=== PATIENT | male | born 2000 | race Caucasian/White ===

== ENCOUNTER 2020-07-02 11:43 | Emergency (ER) | payer MEDICAID, SELFPAY ==
[2020-07-02 11:45] VITALS: BP 129/79; PULSE 96; RESP 16; TEMP 36.5; O2SAT 97; BMI 24.9
--- NOTE | 2020-07-02 11:55 | ED_ITS ---
HPI - Skin/Abscess/Foreign Bdy General: Chief complaint: Skin/Abscess/Foreign Body Stated complaint: PAIN IN BOTH FEET Time Seen by Provider: 07/02/20 11:55 Source: patient Mode of arrival: ambulatory Limitations: no limitations History of Present Illness: HPI narrative: systemic rash, right foot painful and burning MD complaint: rash and lesion Onset (ago): day(s) (2) Tetanus up to date: yes Location: generalized, back, LLE, RLE, L foot and R foot Severity: moderate Severity scale (1-10): 6 Quality: burning and pruritic Pain Consistency: constant Relieving factors: none Review of Systems General: Reports: 10 or more systems reviewed and unremarkable except in HPI and below Skin/Breast: Reports: rash, pruritus, erythema and sores Physical Exam Const: COMMON NORMALS: no acute distress, patient oriented x3, no limitations and alert GENERAL APPEARANCE: cooperative and comfortable ORIENTATION/CONSCIOUSNESS: Yes awake, Yes oriented to person, Yes oriented to place and Yes oriented to time HENMT: COMMON NORMALS: normocephalic, atraumatic, external ears normal, EAC's normal, TM's normal bilaterally and Normal external nose present HEAD & SCALP: normal to inspection, normocephalic and atraumatic FACE & SINUS: normal facial exam, sinuses nontender and face symmetric NOSE: Normal external nose present, Normal nares present and No nasal discharge present EXTERNAL EAR: Yes external ears normal EXTERNAL AUDITORY CANAL: EAC's normal TYMPANIC MEMBRANE: TM's normal bilaterally MOUTH: Normal oral and palatal mucosa present, lip normal and tongue normal THROAT: posterior oropharynx normal, tonsils normal and uvula midline Eye: COMMON NORMALS: Equal, round and reactive pupils present, EOMs intact bilaterally and conjunctivae normal GENERAL EYE: appearance normal, both eyes and all related structures and normal light reflex EYELID: eyelids normal CONJUNCTIVA: Yes conjunctivae normal PUPIL: Yes Equal, round and reactive pupils present EOM: Yes EOM abnormal DIRECT OPHTHALMOSCOPY: Yes normal light reflex Neck/C-Spine: COMMON NORMALS: full ROM, no lymphadenopathy, supple, no meningeal signs, no JVD and Thyroid normal GENERAL: Yes normal visual inspection THYROID: Thyroid normal CERVICAL SPINE: Yes cervical ROM normal and Yes normal cervical lordosis Lymph: LYMPHATIC: no lymphadenopathy noted Chest: COMMONS NORMALS: normal inspection of the chest and normal palpation of entire chest wall Resp: COMMON NORMALS: normal respiratory effort, No retractions and clear to auscultation bilaterally AUSCULTATION: clear to auscultation bilaterally Cardio: COMMON NORMALS: no JVD, regular rate, regular rhythm, S1 normal heart sound present, S2 normal heart sound present, No gallops present (Cardio), No clicks present (Cardio), No murmurs present (Cardio), No rub (Cardio) and Peripheral pulses 2+ throughout RATE: regular rate RHYTHM: regular rhythm HEART SOUNDS: S1 normal heart sound present and S2 normal heart sound present PERIPHERAL PULSES: Peripheral pulses 2+ throughout GI: COMMON NORMALS: Normal to inspection, nondistended, normoactive bowel sounds present, Soft to palpation, non-tender and no masses PALPATION: Yes Soft to palpation and No Tenderness to palpation present (GI) : COMMON NORMALS: Yes no CVA tenderness BLADDER/KIDNEY EXAM: Yes no CVA tenderness Back/Pelvis: COMMON NORMALS: no CVA tenderness, thoracic and lumbar spine normal to inspection, no thoracic nor lumbar tenderness and thoraco-lumbar ROM normal Extremity: COMMON NORMALS: normal to inspection, full ROM, capillary refill normal, no joint enlargement, no clubbing, cyanosis or edema, no calf tenderness and no pedal edema GENERAL: Yes normal exam except as noted Neuro: COMMON NORMALS: patient oriented x3, moves all extremities, no focal motor deficits, no sensory deficits noted and gait normal SENSORIUM/ORIENTATION: Yes alert, Yes oriented to person, Yes oriented to place and Yes oriented to time MENINGEAL SIGNS: Yes no meningeal signs Psych: COMMON NORMALS: mental status grossly normal, Normal thought process present, cooperative, normal affect, speech normal and activity/motor behavior normal SPEECH: Yes normal speech THOUGHT PROCESS: Normal thought process present Skin: COMMON NORMALS: no wounds and turgor normal GENERAL SKIN EXAM: turgor normal, erythema and Excoriation LESIONS: lesion noted (vesicular lesions over BLE and back ) RASHES: rashes noted Course ED course: Pt presents to ER with vesicular lesions that are crusting and weeping. His right foot is most notably red and painful with some tissue loss. He denies any recent illnesses, IV drug use, or contact with poison kylah or possible allergens. 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 Labs are pending. HIV testing was discussed with pt before ordering. Reevaluation(s): Reevaluation #1: Labs are not conclusive of any infection but I am still going to treat pt with oral antibx for secondary infection of vesicular lesions. The presention could still be a contact dermatitis but because pt is not sure of contaminants we will proceed with follow up with derm. Topical steroids to help with discomfort. Time: 13:46 Vital Signs: Vital signs: Vital Signs Temperature 97.7 F 07/02/20 11:45 Pulse Rate 81 07/02/20 13:02 Respiratory Rate 16 07/02/20 13:02 Blood Pressure 120/74 07/02/20 13:02 Pulse Oximetry 100 07/02/20 13:02 MDM - Skin/Abscess/Foreign Bdy Lab Data: Labs: Lab Results 07/02/20 07/02/20 07/02/20 Range/Units 12:28 12:28 12:28 WBC 11.6 H (4.0-10.0) 10^3/ uL RBC 5.14 (4.1-5.3) 10^6/u L Hgb 15.3 (11.7-16.6) g/dL Hct 45.9 (42.0-52.0) % MCV 89.3 (80-94) fL MCH 29.8 (28.0-34.0) pg MCHC 33.3 (30.0-36.0) g/dL RDW 12.5 (12.1-15.1) % Plt Count 294 (130-400) 10^3/c mm MPV 9.0 (7.4-10.4) fL Neut % (Auto) 64.3 % Lymph % (Auto) 18.4 % [place] % (Auto) 13.6 % Eos % (Auto) 2.9 % Baso % (Auto) 0.5 % Neut # (Auto) 7.44 (1.8-7.7) 10^3/u L Lymph # (Auto) 2.1 (0.8-4.8) 10^3/u L [place] # (Auto) 1.6 H (0.2-0.9) 10^3/u L Eos # (Auto) 0.3 (0.0-0.8) 10^3/u L Baso # (Auto) 0.1 (0.0-0.1) 10^3/u L Nucleated RBC % (a uto) 0 % Nucleated RBCs # 0.0 /100WBC Monoscreen Negative (Negative) HIV 1&2 Ab & HIV 1 Ag Non-reactive (Non-Reactiv) HIV 1&2 Antibody Non-reactive (Non-Reactiv) Group A Strep Rapi d (Negative) 07/02/20 Range/Units 12:46 WBC (4.0-10.0) 10^3/ uL RBC (4.1-5.3) 10^6/u L Hgb (11.7-16.6) g/dL Hct (42.0-52.0) % MCV (80-94) fL MCH (28.0-34.0) pg MCHC (30.0-36.0) g/dL RDW (12.1-15.1) % Plt Count (130-400) 10^3/c mm MPV (7.4-10.4) fL Neut % (Auto) % Lymph % (Auto) % [place] % (Auto) % Eos % (Auto) % Baso % (Auto) % Neut # (Auto) (1.8-7.7) 10^3/u L Lymph # (Auto) (0.8-4.8) 10^3/u L [place] # (Auto) (0.2-0.9) 10^3/u L Eos # (Auto) (0.0-0.8) 10^3/u L Baso # (Auto) (0.0-0.1) 10^3/u L Nucleated RBC % (a uto) % Nucleated RBCs # /100WBC Monoscreen (Negative) HIV 1&2 Ab & HIV 1 Ag (Non-Reactiv) HIV 1&2 Antibody (Non-Reactiv) Group A Strep Rapi d Negative (Negative) Discharge Plan Discharge Patient Disposition: Home Clinical Impression: Viral exanthem Condition: Stable Prescriptions: New Augmentin 875-125 mg tablet 1 tab PO Q12H Qty: 20 RF: 0 triamcinolone acetonide 0.1 % lotion 1 applic topical BID Qty: 120 RF: 1 Discharge Orders: Discharge ED (Routine); Ordered 07/02/20 Ordered By: Alina Cherry Referrals: Alida Robledo DO [Physician] - Discharge Diet: Usual diet Discharge Activity: Increase activity as tolerated Patient Instructions: Opioid Safety Coding Level of Care Code ED Radiologist Diagnostic for [facility]ig Fwd Exam Comprehensive
[2020-07-02] MEDS: dexamethasone 10 mg/mL INJ IM (12:26)
[2020-07-02 12:37] LABS: Basophils # 0.1 10^3/uL (0.0-0.1); Basophils % 0.5 %; Eosinophils # 0.3 10^3/uL (0.0-0.8); Eosinophils % 2.9 %; Hematocrit 45.9 % (42.0-52.0); Hemoglobin 15.3 g/dL (11.7-16.6); Lymphocytes # 2.1 10^3/uL (0.8-4.8); Lymphocytes % 18.4 %; Mean Corpuscular HGB Conc 33.3 g/dL (30.0-36.0); Mean Corpuscular Hemoglobin 29.8 pg (28.0-34.0); Mean Corpuscular Volume 89.3 fL (80-94); Monocytes # 1.6 10^3/uL (0.2-0.9); Monocytes % 13.6 %; Neutrophils # 7.44 10^3/uL (1.8-7.7); Neutrophils % 64.3 %; Nucleated Red Blood Cells % 0 %; Platelet Count 294 10^3/cmm (130-400); Red Blood Count 5.14 10^6/uL (4.1-5.3); Red Cell Distribution Width 12.5 % (12.1-15.1); White Blood Count 11.6 10^3/uL (4.0-10.0)
[2020-07-02 12:47] LABS: Monoscreen Negative (Negative)
[2020-07-02] MEDS: silver sulfadiazine cream 1% 50 gm 1 APPLIC TOPICAL (12:51)
--- NOTE | 2020-07-02 13:01 | PC.NURSE ---
cleaned bilateral feet with NS, applied silvadene cream, ABD pad, wrapped with kerlix. patient tolerated well
[2020-07-02 13:02] VITALS: BP 120/74; PULSE 81; RESP 16; O2SAT 100
[2020-07-02 13:16] LABS: HIV 1 & 2 Antibody Non-Reactive (Non-Reactiv); HIV 1 & 2 Antigen Non-Reactive (Non-Reactiv)
[2020-07-02 13:20] LABS: Rapid Strep A Test Negative (Negative)
[2020-07-02] MEDS: amoxicillin-clav 875-125 mg Tablet 1 TAB PO (13:22)
[2020-07-02 14:11] VITALS: BP 132/90; PULSE 83; RESP 16; O2SAT 100
--- NOTE | 2020-07-07 13:43 | DCPLANNER ---
Addendum entered by Yana Colón 07/12/20 11:17: environmental compliance manager called the dermatology clinic, spoke with Doris, a follow up appointment was scheduled for Monday, July 13, 2020 at 9:[address] Robledo. Clinic will call patient with appointment information. Original Note: environmental compliance manager had message to schedule a follow up appointment for patient with dermatology. environmental compliance manager called the dermatology clinic, unable to speak with anyone at the clinic at this time, a voicemail was left at the clinic to return employment evaluator/case manager phone call for referral.
--- NOTE | 2020-08-12 15:22 | DCPLANNER ---
Patient had an appointment scheduled for 07.13.20 with dermatology - patient did not attend appointment.
== END 2020-07-02 14:14 | disposition home or self-care (01) ==
PROVIDERS: Emergency Provider Nurse Practitioner Family
DX: B09 Unspecified viral infection characterized by skin and mucous membrane lesions (principal)
CPT/HCPCS: 85025; 86308; 87081; 87806; 87880; 96372; 99283; J1100

== ENCOUNTER 2020-07-05 14:28 | Emergency (ER) | payer MEDICAID, SELFPAY ==
[2020-07-05 14:53] VITALS: BP 131/80; PULSE 90; RESP 16; TEMP 36.7; O2SAT 99; BMI 24.9
--- NOTE | 2020-07-05 18:08 | ED_ITS ---
HPI - Extremity Problem General: Chief complaint: Extremity Problem,Nontraumatic Stated complaint: Infection on R. Foot Time Seen by Provider: 07/05/20 17:36 Source: patient Mode of arrival: ambulatory Limitations: no limitations History of Present Illness: MD Complaint: extremity pain and extremity swelling Location: left, right, lower extremity and other (foot) Quality: burning and other (itching) Radiation: none Relieving factors: nothing Exacerbating factors: nothing Associated symptoms: Reports no associated symptoms and rash (itching scaling rash to bilateral feet); Deny chest pain or fever(s) Review of Systems Const: Denies: fever(s), chills, body aches, change in appetite, change in weight, fatigue, malaise or diaphoresis Eyes: Denies: change in vision, blurry vision, blind spots, photophobia, eye discomfort, eye discharge, eye redness, floaters or seeing flashes ENMT: Denies: throat pain, uvular edema, enlarged tonsils, odynophagia, hoarseness, mouth pain, swelling of lips/tongue, oral sores, bleeding gums, dental pain, dry mouth, ear or mastoid pain, ear discharge, change in hearing, tinnitus, disequilibrium, nasal discharge, nasal congestion, post nasal drip or sinus pain Card: Denies: chest pain, palpitations, irregular heart rhythm, edema, swelling of feet/ankles, lightheadedness, syncope, pre-syncope, dyspnea on exertion, orthopnea, leg pain with exertion or acrocyanosis Resp: Denies: dyspnea, productive cough, non-productive cough, wheezing, stridor, pain on inspiration, change in phlegm color, hemoptysis or chest congestion GI: Denies: abdominal pain, nausea, vomiting, hematemesis, dysphagia, diarrhea, constipation, GI cramping, change in bowel habits or rectal pain : Denies: flank pain, dysuria, urinary frequency, urinary urgency, urinary hesitancy or hematuria Musc: Denies: neck pain, back pain, extremity pain, extremity swelling, joint pain, joint swelling, joint redness, joint warmth or deformity Skin/Breast: Reports: rash (itching scaling rash to bilateral feet); Denies: pruritus, erythema, sores, new lesions, changes in skin color or dry skin Neuro: Denies: headache(s), numbness in extremities, weakness in extremities, sensory changes, lack of coordination, difficulty walking, frequent falls, dizziness, vertigo, confusion, behavioral changes, Slurred speech present, difficulty communicating thoughts or seizure-like activity Psych: Denies: anxiety, depression, suicidal ideation or homicidal ideation Endo: Denies: polyuria, polydipsia, tired all the time, cold intolerance, excessive sweating, flushing, hot flashes or heat intolerance Jame/Lymph: Denies: easy bruising, easy bleeding, petechiae, purpura, enlarged lymph nodes or tender lymph nodes All/Imm: Denies: urticaria, throat swelling, tongue swelling, facial swelling, acute wheezing or itchy eyes Physical Exam Const: COMMON NORMALS: no acute distress, average body habitus, patient oriented x3, no limitations, healthy appearing, alert and well nourished HENMT: COMMON NORMALS: normocephalic and atraumatic HEAD & SCALP: normocephalic and atraumatic THROAT: no uvular edema Eye: COMMON NORMALS: Equal, round and reactive pupils present PUPIL: Yes Equal, round and reactive pupils present Lymph: LYMPHATIC: no lymphadenopathy noted Resp: COMMON NORMALS: normal respiratory effort Cardio: COMMON NORMALS: regular rate and regular rhythm RATE: regular rate RHYTHM: regular rhythm Extremity: COMMON NORMALS: full ROM, capillary refill normal, no joint enlargement, no clubbing, cyanosis or edema, no calf tenderness and no pedal edema Neuro: COMMON NORMALS: patient oriented x3, CN's II-XII intact bilaterally, moves all extremities, no focal motor deficits and no sensory deficits noted SENSORIUM/ORIENTATION: Yes alert Psych: COMMON NORMALS: mental status grossly normal, Normal thought process present, cooperative, normal affect, speech normal, activity/motor behavior normal, denies hallucinations and denies suicidal ideation SPEECH: Yes normal speech THOUGHT PROCESS: Normal thought process present Skin: NARRATIVE SKIN EXAM: scaling erythema rash noted to bilateral feet c/w tinea corpus there is also what appears to be start of celluitis to left foot. Course Vital Signs: Vital signs: Vital Signs Temperature 98.0 F 07/05/20 14:53 Pulse Rate 90 07/05/20 14:53 Respiratory Rate 16 07/05/20 14:53 Blood Pressure 131/80 07/05/20 14:53 Pulse Oximetry 99 07/05/20 14:53 MDM - Extremity (Nontraumatic) MDM Narrative: Medical decision making narrative: Pt is well appearing non toxic and in no acute distress. scaling erythema rash noted to bilateral feet c/w tinea corpus there is also what appears to be start of celluitis to left foot. I will start patient on an antifungal ointment as well as an oral antibiotic. I reviewd home care and return precautions with patient. Pt is NVI distall and afebrile. Discharge Plan Discharge Patient Disposition: Home Clinical Impression: Tinea corporis Cellulitis Qualifiers: Site of cellulitis: extremity Site of cellulitis of extremity: lower extremity Laterality: left Qualified Code(s): L03.116 - Cellulitis of left lower limb Condition: Stable Prescriptions: New Antifungal Cream (miconazole) 2 % cream 1 applic topical BID 14 Days Qty: 30 RF: 0 cephalexin 500 mg capsule 500 mg PO BID 7 Days Qty: 14 RF: 0 No Action Augmentin 875-125 mg tablet 1 tab PO Q12H Qty: 20 RF: 0 triamcinolone acetonide 0.1 % lotion 1 applic topical BID Qty: 120 RF: 1 Discharge Orders: Discharge ED (Routine); Ordered 07/05/20 Ordered By: Belkis Maldonado Discharge Diet: Advance as tolerated Discharge Activity: Increase activity as tolerated Patient Instructions: Antifungals (On the skin), Opioid Safety Coding Level of Care Code ED Medical Imaging Technician for Flakita Fuentes
--- NOTE | 2020-07-05 18:29 | PC.NURSE ---
pt seen by ED provider and discharged from waiting room. Nurse did not assess this pt and only saw him to discharge him. Pt had skin areas covered with boots.
== END 2020-07-05 18:30 | disposition home or self-care (01) ==
PROVIDERS: Emergency Provider Registered Nurse
DX: L03.116 Cellulitis of left lower limb (principal); B35.4 Tinea corporis
CPT/HCPCS: 99282

== ENCOUNTER 2020-07-11 15:21 | Emergency (ER) | payer MEDICAID, SELFPAY ==
[2020-07-11 15:32] VITALS: PULSE 125; RESP 18; TEMP 36.9; O2SAT 99; BMI 24.9
[2020-07-11 15:35] VITALS: BP 110/85; RESP 18; O2SAT 100
--- NOTE | 2020-07-11 15:54 | W.ED.SKABFB ---
HPI - Skin/Abscess/Foreign Bdy General: Chief complaint: Skin/Abscess/Foreign Body Stated complaint: LAST SEEN 2 WK AGO FOR INFECTION ON FT/NOW ON BACK Time Seen by Provider: 07/11/20 15:44 History of Present Illness: HPI narrative: Patient presents with severe rash on his back his arms and legs. Says is worsening is very painful -medication he is taking has not helped out. Said the rash started originally on his foot and now has spread. Denies any drug use denies any recent insect bites. Says it does itch. Patient states he smokes weed daily. 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 Then he had some insect bites he started itching. And has spread since then. He said the marijuana helps with the pain. MD complaint: rash Onset (ago): week(s) Tetanus up to date: unsure Location: generalized Severity: severe Severity scale (1-10): 6 Quality: stabbing, constant and pruritic Pain Consistency: constant Relieving factors: none Context: new medication (Rash worsen with Keflex he believes) Associated symptoms: Deny chills, fever(s), nausea or vomiting Review of Systems Const: Denies: fever(s), chills or body aches Eyes: Denies: change in vision or blurry vision ENMT: Denies: throat pain or nasal congestion Card: Denies: chest pain or dyspnea on exertion Resp: Denies: dyspnea, productive cough or non-productive cough GI: Denies: abdominal pain, nausea or vomiting : Denies: difficulty urinating Musc: Denies: extremity pain Skin/Breast: Reports: rash (Rash spread to his back from his legs. Feet are looking better now), pruritus, erythema, skin tenderness, changing lesions and other Neuro: Denies: headache(s) Psych: Denies: anxiety or depression Jame/Lymph: Denies: easy bruising Physical Exam Const: COMMON NORMALS: no acute distress, average body habitus and patient oriented x3 HENMT: COMMON NORMALS: normocephalic HEAD & SCALP: normal to inspection and normocephalic FACE & SINUS: normal facial exam Eye: COMMON NORMALS: conjunctivae normal GENERAL EYE: appearance normal, both eyes and all related structures CONJUNCTIVA: Yes conjunctivae normal Neck/C-Spine: COMMON NORMALS: no JVD Chest: COMMONS NORMALS: normal inspection of the chest Resp: COMMON NORMALS: normal respiratory effort and clear to auscultation bilaterally AUSCULTATION: clear to auscultation bilaterally Cardio: COMMON NORMALS: no JVD and regular rhythm RATE: tachycardic RHYTHM: regular rhythm GI: COMMON NORMALS: Normal to inspection, nondistended, normoactive bowel sounds present Extremity: COMMON NORMALS: normal to inspection and full ROM Neuro: COMMON NORMALS: patient oriented x3 Skin: OTHER: Patient has bullae complaint all across his back he has multiple bullae on his legs and his arms having some started on his nose. Course Vital Signs: Vital signs: Vital Signs Temperature 98.2 F 07/11/20 17:08 Pulse Rate 112 H 07/11/20 17:08 Respiratory Rate 18 07/11/20 17:08 Blood Pressure 110/85 07/11/20 15:35 Pulse Oximetry 98 07/11/20 17:08 MDM - Skin/Abscess/Foreign Bdy MDM Narrative: Medical decision making narrative: Dr. Bonilla came in and observe the rash to and we decided that is probably bullous impetigo. Animal caused rashes are included in diagnosis which would include brucellosis patient had no fever no myalgias headache or fatigue which is consistent brucellosis but because he had exposure to cattle that is something that would have to consider patient again was instructed follow-up with dermatology this week. And if no improvement with current medications to return here. Discharge Plan Discharge Patient Disposition: Home Clinical Impression: Bullous impetigo Condition: Stable Prescriptions: New clindamycin HCl 300 mg capsule 300 mg PO Q8H 7 Days Qty: 21 RF: 0 hydroxyzine HCl 25 mg tablet 25 mg PO TID PRN (Reason: itching) Qty: 20 RF: 0 tramadol 50 mg tablet 50 mg PO TID PRN (Reason: pain) Qty: 14 RF: 0 prednisone 50 mg tablet 50 mg PO DAILY 7 Days Qty: 7 RF: 0 Discontinued triamcinolone acetonide 0.1 % lotion 1 applic topical BID Qty: 120 RF: 1 miconazole nitrate [Antifungal Cream (miconazole)] 2 % cream 1 applic topical BID 14 Days Qty: 30 RF: 0 cephalexin 500 mg capsule 500 mg PO BID 7 Days Qty: 14 RF: 0 Discharge Orders: Discharge ED (Routine); Ordered 07/11/20 Ordered By: Cleve Rico Discharge Diet: Usual diet Discharge Activity: Increase activity as tolerated Patient Instructions: Impetigo (ED), Opioid Safety Activity Restrictions/Additional Instructions: Follow-up with medical provider as directed. Take medications as prescribed. Return to the ER or your medical provider if condition worsens. Please read and understand discharge instructions. If any questions ask please. You were diagnosed with bullous impetigo. Hospital contact with a follow-up appointment on Sunday to get into a salesforce administrator sure you keep that appointment. Sure that you keep your hands clean and washed well. Try not to scratch your lesions because that will cause spreading follow instructions on which medications to take. If worsening of symptoms return here immediately. Coding Level of Care Code ED Heat Treating Furnace Tender for Flakita Fwvinicius Exam Comprehensive
[2020-07-11] MEDS: hyDROXYzine 25 mg Capsule PO (16:22)
[2020-07-11] MEDS: HYDROcodone-acetaminophen 7.5-325 mg Tablet 1 TAB PO (16:22)
[2020-07-11] MEDS: clindamycin 600 MG/50 ML PREMIX 100 MG IV (16:23)
[2020-07-11 17:08] VITALS: PULSE 112; RESP 18; TEMP 36.8; O2SAT 98
--- NOTE | 2020-07-12 11:21 | DCPLANNER ---
human resources project manager had message to schedule a follow up appointment for patient with dermatology. human resources project manager already had an order to schedule a follow up appointment for patient with dermatology from a previous visit. human resources project manager called the dermatology clinic, spoke with Doris about appointment. A follow up appointment was scheduled for Monday, July 13, 2020 at 9:[address] Robledo. Clinic will call patient with appointment information.
== END 2020-07-11 17:11 | disposition home or self-care (01) ==
PROVIDERS: Emergency Provider Nurse Practitioner Family
DX: L01.03 Bullous impetigo (principal)
CPT/HCPCS: 87070; 87077; 87186; 96365; 96375; 99283; J2930; J3490

== ENCOUNTER 2020-08-29 09:13 | Emergency (ER) | payer MEDICAID, SELFPAY ==
[2020-08-29 09:44] VITALS: BP 134/82; PULSE 106; RESP 18; TEMP 36.8; O2SAT 98; BMI 24.9
--- NOTE | 2020-08-29 09:48 | W.ED.BACK ---
HPI - Back Pain/Injury General: Chief Complaint: Skin/Abscess/Foreign Body Stated Complaint: Severe pain in lower back Time Seen by Provider: 08/29/20 09:21 History of Present Illness: HPI Narrative: Patient is a 20-year-old male comes to the ED with painful lesions on back. Patient has had these for the past couple of weeks and says there is 2 spots of gotten larger more sore and painful. Says he has been picking at them and they have been draining some purulent pus. Lesions are red raised and tender and one is in the left lower back and the other 1 is on the left mid back region. Denies any other symptoms. Associated symptoms: Deny abdominal pain, chills, dysuria, fatigue, fever(s), hematuria, nausea or vomiting Review of Systems Const: Denies: fever(s), chills or fatigue Eyes: Denies: change in vision or eye discomfort ENMT: Denies: throat pain, odynophagia, nasal discharge or nasal congestion Card: Denies: chest pain, palpitations, edema, swelling of feet/ankles, dyspnea on exertion or orthopnea Resp: Denies: dyspnea, productive cough or non-productive cough GI: Denies: abdominal pain, nausea, vomiting, diarrhea, constipation or hematochezia : Denies: flank pain, difficulty urinating, dysuria or hematuria Musc: Denies: neck pain, back pain or extremity swelling Skin/Breast: Reports: new lesions (Painful red nodules on back.); Denies: rash Neuro: Denies: headache(s), numbness in extremities or weakness in extremities Physical Exam Const: COMMON NORMALS: no acute distress, patient oriented x3 and alert GENERAL APPEARANCE: cooperative and comfortable HENMT: COMMON NORMALS: normocephalic HEAD & SCALP: normocephalic MOUTH: Normal oral and palatal mucosa present THROAT: posterior oropharynx normal and uvula midline Neck/C-Spine: COMMON NORMALS: supple GENERAL: Yes normal visual inspection Resp: COMMON NORMALS: normal respiratory effort, No retractions, No use of accessory muscles and clear to auscultation bilaterally AUSCULTATION: clear to auscultation bilaterally Cardio: COMMON NORMALS: regular rate, regular rhythm, S1 normal heart sound present, S2 normal heart sound present, No gallops present (Cardio), No clicks present (Cardio), No murmurs present (Cardio) and Peripheral pulses 2+ throughout RATE: regular rate RHYTHM: regular rhythm HEART SOUNDS: S1 normal heart sound present and S2 normal heart sound present PERIPHERAL PULSES: Peripheral pulses 2+ throughout GI: COMMON NORMALS: Normal to inspection, nondistended, normoactive bowel sounds present, Soft to palpation, non-tender and no masses PALPATION: Yes Soft to palpation : COMMON NORMALS: Yes no CVA tenderness BLADDER/KIDNEY EXAM: Yes no CVA tenderness Back/Pelvis: COMMON NORMALS: no CVA tenderness Neuro: COMMON NORMALS: patient oriented x3 and moves all extremities SENSORIUM/ORIENTATION: Yes alert Skin: NARRATIVE SKIN EXAM: Patient has 2 erythemic, warm and tender nodules on back one is located on the left lower lumbar region and the other is located on the left mid thoracic region. The lumbar region nodule has a white head. They are firm and indurated upon palpation. Findings suggestive of a skin abscess. GENERAL SKIN EXAM: dry skin Procedures Abscess I/D Site: back Side (if applicable): left Sedation/analgesia: none Technique: incised with #11 blade Amount of fluid expressed (mL): 1 Irrigation: No Packing used?: none Course Vital Signs: Vital signs: Vital Signs Temperature 98.7 F 08/29/20 10:38 Pulse Rate 102 H 08/29/20 10:38 Respiratory Rate 18 08/29/20 10:38 Blood Pressure 145/88 08/29/20 10:38 Pulse Oximetry 98 08/29/20 10:38 MDM - Back Pain/Injury MDM Narrative: Medical decision making narrative: Patient is a 20-year-old male has multiple superficial skin abscesses on his back and appear infected and are tender and painful. I was able to perform an I&D on one of the abscesses and got out approximately 1 mL of purulent drainage. Patient was diagnosed with skin abscess and discharged home on prescription of clindamycin. I also placed an order with case management for patient be referred to a senior computer specialist for further evaluation. Patient was given return to ED precautions. Patient understood and agreed with plan. Discharge Plan Discharge Patient Disposition: Home Clinical Impression: Abscess of skin Qualifiers: Site of cutaneous abscess: extremity Site of cutaneous abscess of extremity: lower extremity Laterality: left Qualified Code(s): L02.416 - Cutaneous abscess of left lower limb Condition: Stable Prescriptions: New clindamycin HCl 150 mg capsule 300 mg PO QID 7 Days Qty: 56 RF: 0 mupirocin 2 % ointment kit 1 applic topical DAILY Qty: 1 RF: 0 No Action hydroxyzine HCl 25 mg tablet 25 mg PO TID PRN (Reason: itching) Qty: 20 RF: 0 tramadol 50 mg tablet 50 mg PO TID PRN (Reason: pain) Qty: 14 RF: 0 Discharge Orders: Discharge ED (Routine); Ordered 08/29/20 Ordered By: Alfa Reyes Discharge Diet: Regular Discharge Activity: Resume usual activity Patient Instructions: Skin Abscess Activity Restrictions/Additional Instructions: Follow-up with medical provider as directed. Case management should be contacting you the next several days to set up an appointment with a senior computer specialist. Take medications as prescribed. Return to the ER or your medical provider if condition worsens. Please read and understand discharge instructions. Thank you for choosing [facility] for your healthcare needs today. Please realize this is an emergency room and that we are providing you with a medical screening exam and this may not be complete and all inclusive of all the testing and or work up that you may need to determine your ailment or severity of your illness. It is very important that you follow up as instructed or that you return to the Emergency Department should you have concerns or if your condition changes or worsens in any way. Coding Level of Care Code ED Mainframe Systems Administrator for Flakita Fuentes Exam Comprehensive
[2020-08-29 09:52] VITALS: BP 145/88; PULSE 104; RESP 18; O2SAT 99
[2020-08-29 10:38] VITALS: BP 145/88; PULSE 102; RESP 18; TEMP 37.1; O2SAT 98
[2020-08-29] MEDS: clindamycin 150 mg Capsule 300 MG PO (10:42)
--- NOTE | 2020-08-31 11:06 | DCPLANNER ---
manufacturing plant manager had message to schedule a follow up appointment for patient with dermatology for multiple skin abscesses. manufacturing plant manager called the office of Dr. Robledo, monkey breeder, spoke with Doris, gave clinic patients information. A follow up appointment was scheduled for September at 1:[address] Robledo. manufacturing plant manager called phone number [phone], spoke with patients sister, she did not want the appointment information, stated that she would try and speak with patient and have patient call bottle caser for appointment information. When bottle caser spoke with Doris at the dermatology clinic, was told that patient had an appointment earlier in the year, and did not attend that appointment.
--- NOTE | 2020-10-15 14:22 | DCPLANNER ---
Patient had a follow up appointment scheduled for 09.30.[address] Polanco at dermatology - patient did not attend appointment.
== END 2020-08-29 10:43 | disposition home or self-care (01) ==
PROVIDERS: Emergency Provider Physician Assistant
DX: L02.416 Cutaneous abscess of left lower limb (principal)
CPT/HCPCS: 10060; 99283

== ENCOUNTER 2020-08-30 03:43 | Emergency (ER) | payer MEDICAID, SELFPAY ==
[2020-08-30 03:54] VITALS: BP 151/77; PULSE 107; RESP 14; TEMP 36.6; O2SAT 98; BMI 24.9
[2020-08-30] MEDS: clindamycin 150 mg Capsule 300 MG PO (06:11)
[2020-08-30 06:19] VITALS: BP 135/75; PULSE 100; RESP 16; TEMP 36.6; O2SAT 96
--- NOTE | 2020-08-30 08:19 | W.ED.SKABFB ---
HPI - Skin/Abscess/Foreign Bdy General: Chief complaint: Skin/Abscess/Foreign Body Stated complaint: bump on the back of the leg Time Seen by Provider: 08/30/20 05:15 History of Present Illness: HPI narrative: 20-year-old male seen 24 hours prior, diagnosed with skin abscesses, and sent home on clindamycin. He did not fill the clindamycin or take it. He presents this morning with a third area of swelling, and drainage with pain and redness, this went to his left upper inner thigh. MD complaint: rash and abscess/boil Onset (ago): hour(s) Location: LLE Severity: similar to previous episodes Quality: stabbing and aching Relieving factors: none Exacerbating factors: palpation and movement Associated symptoms: Deny chills, fever(s) or vomiting Treatments prior to arrival: attempted to drain pus at home Review of Systems Const: Denies: fever(s) or chills GI: Denies: vomiting Skin/Breast: Reports: rash, erythema, skin tenderness and other Physical Exam Const: COMMON NORMALS: no acute distress NUTRITIONAL APPEARANCE: thin Chest: COMMONS NORMALS: normal inspection of the chest Resp: COMMON NORMALS: normal respiratory effort and No use of accessory muscles Cardio: COMMON NORMALS: regular rate and regular rhythm RATE: regular rate RHYTHM: regular rhythm Skin: NARRATIVE SKIN EXAM: 2 abscesses present on the back. One small abscess present on the upper inner left thigh. It is tender to touch. It is nonfluctuant. Otherwise, widespread plaques to the extremities and trunk with central drying. Course Vital Signs: Vital signs: Vital Signs Temperature 97.9 F 08/30/20 06:19 Pulse Rate 100 08/30/20 06:19 Respiratory Rate 16 08/30/20 06:19 Blood Pressure 135/75 08/30/20 06:19 Pulse Oximetry 96 08/30/20 06:19 MDM - Skin/Abscess/Foreign Bdy MDM Narrative: Medical decision making narrative: 20-year-old noncompliant patient. He was encouraged to fill his clindamycin and take it is directed. He is given his first dose here. Thigh abscess does not appear fluctuant. We will try antibiotics alone. Hot compresses. It has begun to drain somewhat on its own. Discharge Plan Discharge Patient Disposition: Home Clinical Impression: Abscess of skin Qualifiers: Site of cutaneous abscess: extremity Site of cutaneous abscess of extremity: lower extremity Laterality: left Qualified Code(s): L02.416 - Cutaneous abscess of left lower limb Condition: Stable Prescriptions: No Action hydroxyzine HCl 25 mg tablet 25 mg PO TID PRN (Reason: itching) Qty: 20 RF: 0 tramadol 50 mg tablet 50 mg PO TID PRN (Reason: pain) Qty: 14 RF: 0 clindamycin HCl 150 mg capsule 300 mg PO QID 7 Days Qty: 56 RF: 0 mupirocin 2 % ointment kit 1 applic topical DAILY Qty: 1 RF: 0 Discharge Orders: Discharge ED (Routine); Ordered 08/30/20 Ordered By: David Diego Patient Instructions: Abscess (ED) Activity Restrictions/Additional Instructions: Fill your antibiotic prescription today. Take as directed. Use warm compresses on all of your abscess sites. Return for fever greater than 100, vomiting liquids or medications, spreading or growing areas of redness pain or streaking despite at least 3 doses of antibiotics, other concerning symptoms. Coding Level of Care Code ED Automatic Mounter for Flakita Fuentes
== END 2020-08-30 06:21 | disposition home or self-care (01) ==
PROVIDERS: Emergency Provider Emergency Medicine
DX: L02.416 Cutaneous abscess of left lower limb (principal)
CPT/HCPCS: 99283

== ENCOUNTER 2020-09-05 23:56 | Emergency (ER) | payer MEDICAID, SELFPAY ==
[2020-09-06 01:17] VITALS: BP 139/77; PULSE 99; RESP 18; TEMP 36.4; O2SAT 98; BMI 24.9
--- NOTE | 2020-09-06 08:55 | W.ED.SKABFB ---
HPI - Skin/Abscess/Foreign Bdy General: Chief complaint: Skin/Abscess/Foreign Body Stated complaint: UNEXPLAINED SORES/ABSCESSES ON BACK Time Seen by Provider: 09/06/20 02:44 History of Present Illness: HPI narrative: 20-year-old male has been seen twice before for this complaint in the emergency department. He complains of a painful, itchy rash to his back, and lower extremities. He has finished steroids, antibiotics x1. He noted significant improvement, but his itching and pain started to get worse again evidently. He denies any fever. Associated symptoms: Deny fever(s) or vomiting Review of Systems Const: Denies: fever(s) Eyes: Denies: change in vision Resp: Denies: dyspnea GI: Denies: abdominal pain or vomiting Physical Exam Const: COMMON NORMALS: no acute distress and healthy appearing Chest: COMMONS NORMALS: normal inspection of the chest Resp: COMMON NORMALS: normal respiratory effort, No use of accessory muscles and clear to auscultation bilaterally AUSCULTATION: clear to auscultation bilaterally Cardio: COMMON NORMALS: regular rate and regular rhythm RATE: regular rate RHYTHM: regular rhythm GI: COMMON NORMALS: Normal to inspection, nondistended, normoactive bowel sounds present Skin: NARRATIVE SKIN EXAM: Cystic acne, with some surrounding cellulitis to the back. No definite drainable abscesses. 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 His exam is not impressive for any emergent or urgent need for evaluation or treatment. He was told this. He will be placed on doxycycline for the next month, and prednisone for the itch. Case management referral has been made to dermatology. Discharge Plan Discharge Patient Disposition: Home Clinical Impression: Cystic acne vulgaris Condition: Stable Prescriptions: New doxycycline hyclate 100 mg capsule 100 mg PO BID 30 Days Qty: 60 RF: 0 prednisone 10 mg tablet 10 mg PO DAILY Qty: 20 RF: 0 No Action hydroxyzine HCl 25 mg tablet 25 mg PO TID PRN (Reason: itching) Qty: 20 RF: 0 tramadol 50 mg tablet 50 mg PO TID PRN (Reason: pain) Qty: 14 RF: 0 mupirocin 2 % ointment kit 1 applic topical DAILY Qty: 1 RF: 0 Discharge Orders: Discharge ED (Routine); Ordered 09/06/20 Ordered By: David Diego Discharge Diet: Advance as tolerated Discharge Activity: Increase activity as tolerated Patient Instructions: Cellulitis (ED) Activity Restrictions/Additional Instructions: A case management referral has been placed to get you an appointment with dermatology. They should call you by midweek. If you do not hear from them, dial [phone] and ask for the ER comp field case manager. As this is not an emergency, and we are in the middle of a pandemic, please consider following up as appropriate and not coming in to the emergency room again for this complaint unless you have the following: Fever greater than 100 despite 2-3 doses of antibiotics or more, large fluid-filled abscesses, vomiting liquids or medications. Coding Level of Care Code ED Ceramic Plater for Flakita Fuentes
--- NOTE | 2020-09-06 09:50 | DCPLANNER ---
Addendum entered by Yana Colón 09/06/20 09:54: icu manager called phone number listed in patients chart, which is patients sister. Once again, she did not want the appointment information, she stated that she would have patient call director of casework services to get appointment information. Original Note: icu manager had message to schedule a follow up appointment for patient with dermatology. icu manager has addressed this referral from a previous visit. icu manager had message to schedule a follow up appointment for patient with dermatology for multiple skin abscesses. icu manager called the office of Dr. Robledo, javascript programmer, spoke with Doris, gave clinic patients information. A follow up appointment was scheduled for , September 30, 2020 at 1:[address] Robledo. icu manager called phone number [phone], spoke with patients sister, she did not want the appointment information, stated that she would try and speak with patient and have patient call director of casework services for appointment information. When director of casework services spoke with Doris at the dermatology clinic, was told that patient had an appointment earlier in the year, and did not attend that appointment.
== END 2020-09-06 03:20 | disposition home or self-care (01) ==
PROVIDERS: Emergency Provider Emergency Medicine
DX: L70.0 Acne vulgaris (principal)
CPT/HCPCS: 99281

== ENCOUNTER 2020-09-07 07:04 | Emergency (ER) | payer MEDICAID, SELFPAY ==
--- NOTE | 2020-09-07 07:06 | W.ED.EAR ---
HPI - Ear Problem General: Stated complaint: Pain from R side of ear down to neck Time Seen by Provider: 09/07/20 07:05 History of Present Illness: HPI Narrative: 20-year-old male [facility] emergency room complaining of right-sided ear pain radiating down his neck and began earlier this morning presenting drainage from the ear. No cough cold fever sweats chills denies sore throat shortness of breath. Patient states symptoms began suddenly around 430 this morning radiate down the right side of the neck. MD Complaint: ear pain Location: right ear Duration: constant Severity: mild Relieving factors: nothing Exacerbating factors: nothing Discharge from ear: no Associated symptoms: Reports ear or mastoid pain and neck pain (Right side of the neck); Denies external ear pain, fever(s), headache(s), hearing loss, rhinorrhea or tinnitus Treatment prior to arrival: none Review of Systems Const: Denies: fever(s) ENMT: Reports: ear or mastoid pain; Denies: tinnitus Card: Denies: chest pain, edema, dyspnea on exertion or orthopnea Resp: Denies: dyspnea, productive cough or non-productive cough GI: Denies: abdominal pain, nausea, vomiting, diarrhea or constipation Musc: Reports: neck pain (Right side of the neck) Neuro: Denies: headache(s) Physical Exam Const: COMMON NORMALS: no acute distress GENERAL APPEARANCE: cooperative and comfortable ORIENTATION/CONSCIOUSNESS: Yes awake, Yes oriented to person, Yes oriented to place and Yes oriented to time HENMT: COMMON NORMALS: normocephalic, atraumatic, hearing grossly normal bilaterally, external ears normal, EAC's normal, TM's normal bilaterally, Normal nasal mucous membranes and turbinates present, moist oral mucous membranes and oropharynx normal HEAD & SCALP: normocephalic and atraumatic NOSE: Normal nasal mucous membranes and turbinates present EXTERNAL EAR: Yes external ears normal EXTERNAL AUDITORY CANAL: EAC's normal TYMPANIC MEMBRANE: TM's normal bilaterally Neck/C-Spine: COMMON NORMALS: full ROM, no lymphadenopathy, supple and no JVD OTHER: No nuchal rigidity Lymph: LYMPHATIC: no lymphadenopathy noted and no lymphedema noted Resp: COMMON NORMALS: normal respiratory effort, No retractions, No use of accessory muscles and clear to auscultation bilaterally AUSCULTATION: clear to auscultation bilaterally Cardio: COMMON NORMALS: no JVD, regular rate, regular rhythm and No murmurs present (Cardio) RATE: regular rate RHYTHM: regular rhythm Neuro: SENSORIUM/ORIENTATION: Yes oriented to person, Yes oriented to place and Yes oriented to time MDM - Ear MDM Narrative: Medical decision making narrative: No findings on exam he may have a small amount of fluid in the orbits very minute difficult even to distinguish. We will have him try some cetirizine twice daily as needed [id number] Tylenol or ibuprofen follow-up as needed if worsens or change recheck Discharge Plan Discharge Patient Disposition: Home Clinical Impression: Acute otalgia Condition: Stable Prescriptions: New cetirizine 10 mg capsule 10 mg PO BID Qty: 30 RF: 0 No Action hydroxyzine HCl 25 mg tablet 25 mg PO TID PRN (Reason: itching) Qty: 20 RF: 0 tramadol 50 mg tablet 50 mg PO TID PRN (Reason: pain) Qty: 14 RF: 0 mupirocin 2 % ointment kit 1 applic topical DAILY Qty: 1 RF: 0 doxycycline hyclate 100 mg capsule 100 mg PO BID 30 Days Qty: 60 RF: 0 prednisone 10 mg tablet 10 mg PO DAILY Qty: 20 RF: 0 Discharge Orders: Discharge ED (Routine); Ordered 09/07/20 Ordered By: Michele Read Patient Instructions: Opioid Safety Coding Level of Care Code ED Cyber Workforce Developer And Manager for Flakita Fuentes
[2020-09-07 07:12] VITALS: BP 126/57; PULSE 96; RESP 16; TEMP 36.8; O2SAT 95; BMI 24.9
[2020-09-07 07:22] VITALS: O2SAT 95
== END 2020-09-07 07:28 | disposition home or self-care (01) ==
PROVIDERS: Emergency Provider Family Medicine
DX: H92.01 Otalgia, right ear (principal)
CPT/HCPCS: 99282

== ENCOUNTER 2020-09-07 21:33 | Emergency (ER) | payer MEDICAID, SELFPAY ==
[2020-09-07 22:01] VITALS: BP 125/79; PULSE 114; RESP 16; TEMP 36.4; O2SAT 96; BMI 24.9
--- NOTE | 2020-09-07 22:08 | W.ED.BACK ---
HPI - Back Pain/Injury General: Chief Complaint: Back Pain/Injury Stated Complaint: Back of Neck Pain Time Seen by Provider: 09/07/20 22:08 History of Present Illness: HPI Narrative: Patient has been diagnosed with Sweet syndrome. Patient comes in due to the need for repeat prescription of prednisone due to exacerbation of rash. Patient appears well. Patient appears no acute distress. Review of Systems General: Reports: 10 or more systems reviewed and unremarkable except in HPI and below Skin/Breast: Reports: rash Physical Exam Const: COMMON NORMALS: no acute distress and patient oriented x3 GENERAL APPEARANCE: cooperative HENMT: COMMON NORMALS: normocephalic, TM's normal bilaterally and Normal external nose present HEAD & SCALP: normal to inspection and normocephalic NOSE: Normal external nose present TYMPANIC MEMBRANE: TM's normal bilaterally MOUTH: Normal oral and palatal mucosa present THROAT: posterior oropharynx normal Eye: GENERAL EYE: appearance normal, both eyes and all related structures Neck/C-Spine: COMMON NORMALS: full ROM Lymph: LYMPHATIC: no lymphadenopathy noted Chest: COMMONS NORMALS: normal inspection of the chest Resp: COMMON NORMALS: normal respiratory effort EFFORT & INSPECTION: Yes able to speak in complete sentences Cardio: COMMON NORMALS: regular rate and regular rhythm RATE: regular rate RHYTHM: regular rhythm GI: COMMON NORMALS: non-tender : COMMON NORMALS: Yes no CVA tenderness BLADDER/KIDNEY EXAM: Yes no CVA tenderness Back/Pelvis: COMMON NORMALS: no CVA tenderness and thoracic and lumbar spine normal to inspection Extremity: COMMON NORMALS: normal to inspection Neuro: COMMON NORMALS: patient oriented x3 and moves all extremities Psych: COMMON NORMALS: mental status grossly normal and cooperative Skin: NARRATIVE SKIN EXAM: Patient has a rash increased on his torso with vesicular lesions and central crusting lesions. Patient reports waxing and waning of the rash for several months now. Course Vital Signs: Vital signs: Vital Signs Temperature 97.6 F 09/07/20 22:01 Pulse Rate 114 H 09/07/20 22:01 Respiratory Rate 16 09/07/20 22:01 Blood Pressure 125/79 09/07/20 22:01 Pulse Oximetry 96 09/07/20 22:01 MDM - Back Pain/Injury MDM Narrative: Medical decision making narrative: Patient comes in for refill of prednisone for his sweet syndrome. 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 Patient was diagnosed with Sweet syndrome about 2 months ago and was started on prednisone which did help at first. Patient ran out of the prednisone and has had a recurrence of the rash worsening over the past week. On exam we note vesicular lesions to the torso and various stages from crusting to clustered vesicular eruptions. Differential diagnosis includes disseminated herpes, Sweet syndrome, HSP. Since patient has had treatment with steroids with some improvement we will restart the prednisone at 60 mg daily for the next 10 days and start tapering after that. Patient was strongly recommended to follow-up with primary care or a railroad brake operator for continued care as it may take several months for it to completely resolve. Patient has been frequently returning to the ER for most of his care probably most likely due to his employment or lack of insurance. Discharge Plan Discharge Patient Disposition: Home Clinical Impression: Sweet's syndrome Condition: Stable Prescriptions: New prednisone 20 mg tablet 20 mg PO DAILY Qty: 60 RF: 0 No Action hydroxyzine HCl 25 mg tablet 25 mg PO TID PRN (Reason: itching) Qty: 20 RF: 0 tramadol 50 mg tablet 50 mg PO TID PRN (Reason: pain) Qty: 14 RF: 0 mupirocin 2 % ointment kit 1 applic topical DAILY Qty: 1 RF: 0 doxycycline hyclate 100 mg capsule 100 mg PO BID 30 Days Qty: 60 RF: 0 prednisone 10 mg tablet 10 mg PO DAILY Qty: 20 RF: 0 cetirizine 10 mg capsule 10 mg PO BID Qty: 30 RF: 0 Discharge Orders: Discharge ED (Routine); Ordered 09/07/20 Ordered By: Chan Boyce Discharge Diet: Usual diet Discharge Activity: Increase activity as tolerated Patient Instructions: Opioid Safety Activity Restrictions/Additional Instructions: Good hygiene for rash. Drink plenty of water. Take steroids for the next 30 days as directed. Follow-up in 2 weeks with primary care or railroad brake operator for further treatment and evaluation. Return to the ER for new concerns. Coding Level of Care Code ED Inspector Machine Cut Glass for Flakita Fuentes
[2020-09-07] MEDS: predniSONE 20 mg Tablet 60 MG PO (22:56)
[2020-09-07 23:00] VITALS: PULSE 100; RESP 18
== END 2020-09-07 23:08 | disposition home or self-care (01) ==
PROVIDERS: Emergency Provider Nurse Practitioner Family
DX: L98.2 Febrile neutrophilic dermatosis [Sweet] (principal)
CPT/HCPCS: 99283; J7512

== ENCOUNTER 2020-09-09 01:01 | Emergency (ER) | payer MEDICAID, SELFPAY ==
[2020-09-09 01:18] VITALS: BP 109/58; PULSE 122; RESP 16; TEMP 36.7; O2SAT 94; BMI 24.9
--- NOTE | 2020-09-09 03:56 | ED_ITS ---
HPI - Nausea/Vomiting/Diarrhea General: Chief complaint: Nausea/Vomiting/Diarrhea Stated complaint: N/V Time Seen by Provider: 09/09/20 03:39 Source: patient Mode of arrival: ambulatory Limitations: no limitations History of Present Illness: HPI Narrative: 20-year-old male states he is drinking at a friend's house tonight. He states he started to walk home and got sick. He states that he had one episode of vomiting and called EMS. He states that since waiting here he has felt much improved. He states he no longer has any nausea denies any abdominal pain. Denies any worsening improving factors. Associated nausea: Yes Associated symtoms: Reports nausea; Denies chest pain, dysuria or headache(s) Review of Systems Const: Denies: fever(s), chills, body aches or change in appetite Eyes: Denies: blurry vision or eye discomfort ENMT: Denies: throat pain or dental pain Card: Denies: chest pain Resp: Denies: dyspnea GI: Reports: nausea and vomiting; Denies: abdominal pain or diarrhea : Denies: dysuria Musc: Denies: neck pain or back pain Skin/Breast: Denies: rash Neuro: Denies: headache(s) Psych: Denies: depression Jame/Lymph: Denies: easy bruising All/Imm: Denies: urticaria Physical Exam Const: COMMON NORMALS: no acute distress, patient oriented x3 and healthy appearing HENMT: COMMON NORMALS: normocephalic and atraumatic HEAD & SCALP: normocephalic and atraumatic Eye: COMMON NORMALS: Equal, round and reactive pupils present and EOMs intact bilaterally PUPIL: Yes Equal, round and reactive pupils present Neck/C-Spine: COMMON NORMALS: full ROM and supple Chest: COMMONS NORMALS: normal inspection of the chest and normal palpation of entire chest wall Resp: COMMON NORMALS: normal respiratory effort, No retractions, No use of accessory muscles and clear to auscultation bilaterally AUSCULTATION: clear to auscultation bilaterally Cardio: COMMON NORMALS: regular rate, regular rhythm and No murmurs present (Cardio) RATE: regular rate RHYTHM: regular rhythm GI: COMMON NORMALS: Normal to inspection, nondistended, normoactive bowel sounds present, Soft to palpation, non-tender and no masses PALPATION: Yes Soft to palpation Extremity: COMMON NORMALS: normal to inspection and full ROM Neuro: COMMON NORMALS: patient oriented x3, moves all extremities and no focal motor deficits Psych: COMMON NORMALS: mental status grossly normal, Normal thought process present and cooperative THOUGHT PROCESS: Normal thought process present Skin: COMMON NORMALS: no rashes or lesions noted and no wounds GENERAL SKIN EXAM: no rashes or lesions noted Course Vital Signs: Vital signs: Vital Signs Temperature 98.1 F 09/09/20 01:18 Pulse Rate 122 H 09/09/20 01:18 Respiratory Rate 16 09/09/20 01:18 Blood Pressure 109/58 09/09/20 01:18 Pulse Oximetry 94 09/09/20 01:18 MDM - Nausea/Vomiting/Diarrhea MDM Narrative: Medical decision making narrative: Patient presents here with vomiting and is felt much improved here. He is well-appearing here exam is benign. He has no abdominal tenderness. He is stable for discharge will prescribe him Zofran he is to return if worsening. Discharge Plan Discharge Patient Disposition: Home Clinical Impression: Vomiting Qualifiers: Vomiting type: unspecified Vomiting Intractability: non-intractable Nausea presence: with nausea Qualified Code(s): R11.2 - Nausea with vomiting, unspecified Alcohol intoxication Qualifiers: Complication of substance-induced condition: with unspecified complication Qualified Code(s): F10.929 - Alcohol use, unspecified with intoxication, unspecified Condition: Stable Prescriptions: No Action hydroxyzine HCl 25 mg tablet 25 mg PO TID PRN (Reason: itching) Qty: 20 RF: 0 tramadol 50 mg tablet 50 mg PO TID PRN (Reason: pain) Qty: 14 RF: 0 mupirocin 2 % ointment kit 1 applic topical DAILY Qty: 1 RF: 0 doxycycline hyclate 100 mg capsule 100 mg PO BID 30 Days Qty: 60 RF: 0 prednisone 10 mg tablet 10 mg PO DAILY Qty: 20 RF: 0 prednisone 20 mg tablet 20 mg PO DAILY Qty: 60 RF: 0 cetirizine 10 mg capsule 10 mg PO BID Qty: 30 RF: 0 Discharge Orders: Discharge ED (Routine); Ordered 09/09/20 Ordered By: Adriano Clifford Discharge Diet: Advance as tolerated Discharge Activity: Resume usual activity Patient Instructions: Acute Nausea and Vomiting (ED) Coding Level of Care Code ED [employer] for [facility] Fwd Exam Comprehensive
[2020-09-09] MEDS: ondansetron 4 MG Tablet PO (04:04)
[2020-09-09 04:11] VITALS: BP 117/67; PULSE 98; RESP 18; O2SAT 96
== END 2020-09-09 04:11 | disposition home or self-care (01) ==
PROVIDERS: Emergency Provider Emergency Medicine
DX: R11.2 Nausea with vomiting, unspecified (principal); F10.929 Alcohol use, unspecified with intoxication, unspecified
CPT/HCPCS: 99282; Q0162